=== PATIENT | female | born 1970 | race Hispanic/Latino ===

== ENCOUNTER 2018-11-23 05:30 | Day surgery (SDC) | payer OTHER ==
[~2018-11-23] VITALS: Ht 165.1 cm; Wt 68.9 kg
[2018-11-23] VITALS (8 sets, daily range): BP systolic 103–134; BP diastolic 52–72
[~2018-11-23 05:30] MED LIST: CETI-101 PO; FLUT16H NASAL
[2018-11-23] MEDS ORDERED: SODIUM CHLORIDE 0.9% 1000ML 1,000 ML IV ONE (06:06)
[2018-11-23] MEDS ORDERED: IBUP-2353 PO (06:09)
[2018-11-23] MEDS ORDERED: PROPOFOL 10 MG/ML 20ML VIAL IV ONE (06:20)
[2018-11-23] MEDS ORDERED: LIDOCAINE HCL-MPF 2% 5ML VIAL ONE (06:21)
[2018-11-23] MEDS ORDERED: EPHEDRINE SULFATE 50 MG/ML AMPULE ONE (06:34)
== END 2018-11-23 07:30 | disposition home or self-care (01) ==
LOC: ENDO 05:30 → DAH 05:30 → ENDO 07:30
PROVIDERS: ATTEND Internal Medicine
DX: Z12.11 Encounter for screening for malignant neoplasm of colon (principal); K64.0 First degree hemorrhoids; H91.91 Unspecified hearing loss, right ear; R42 Dizziness and giddiness; J30.2 Other seasonal allergic rhinitis; I10 Essential (primary) hypertension; Z98.51 Tubal ligation status; Z79.899 Other long term (current) drug therapy; Z86.11 Personal history of tuberculosis; Z80.0 Family history of malignant neoplasm of digestive organs; Z88.2 Allergy status to sulfonamides
CPT/HCPCS: 45378; J2704; J3490 ×2; J7030